=== PATIENT | male | born 1990 | race Caucasian/White ===

== ENCOUNTER 2016-12-03 16:13 | Emergency (ER) | payer OTHER ==
[~2016-12-03] VITALS: Ht 172.7 cm; Wt 72.0 kg
[2016-12-03 16:16] VITALS: Ht 172.7 cm; Wt 72.0 kg
--- NOTE | 2016-12-03 16:42 | EMERGENCY ROOM VISIT NOTE ---
History First contact with patient: 16:26 Chief Complaint: GI ASSESSMENT Stated Complaint: POOPING BLOOD Nursing Triage Summary: pt to the ED with 2 episodes of blood in his stool today no complaints of pain pt states it was red and was a lot History of Present Illness The patient is a 26 year old male who presents to the Emergency Room via private vehicle accompanied by stepfather with complaints of "pooping blood". The patient states that he woke up today and at the end of one bowel movement he noticed a little bit of blood, but then he had another bowel movement and it was bright red blood per rectum. He states that the pole was reddened. He notes this happened one other time about 1-2 years ago that was near identical to today. He felt some immediately the past, but does not believe that today. He denies any pain, fevers, chills, medical problems, history of hemorrhoids, fissures. He denies any insertion of objects in the rectum. Review of Systems A complete 6-point Review of Systems was discussed with the patient, with pertinent positives and negatives listed in the History of Present Illness. All remaining Review of Systems questions can be considered negative unless otherwise specified. Past Medical/Surgical History No pertinent. Family History No pertinent. Social History Smoking Status: Never Smoker Pt. currently lives locally. Current/Historical Medications No Active Prescriptions or Reported Meds Physical Exam Vital Signs Date Time Temp Pulse Resp B/P (MAP) Pulse Ox O2 Delivery O2 Flow Rate FiO2 12/03/16 18:51 65 16 99 Room Air 12/03/16 18:45 36.7 65 16 137/85 99 12/03/16 16:16 36.7 65 16 144/93 99 Room Air Physical Exam VITAL SIGNS - Vital signs and nursing notes were reviewed. Stable. GENERAL -26-year-old female appearing his stated age who is in no acute distress. Communicates well with provider and answers questions appropriately. SKIN - Without rashes. No petechial rashes. HEAD - NC/AT. LUNGS - Chest wall symmetric without accessory muscle use, intercostals retractions, or central cyanosis. Normal vesicular breath sounds CTA B/L. No wheezes, rales, or rhonchi appreciated. CARDIAC - RRR with S1/S2. No murmur, rubs, or gallops appreciated. ABDOMEN - Abdominal contour normal without pulsations or visible masses. BS normoactive all four quadrants. No tenderness, palpable masses, hepatosplenomegaly, or ascites noted. RECTAL: There is a small hemorrhoid in the anterior most portion that is not thrombosed. No active hemorrhaging or bleeding. Consent was obtained, and a rectal exam was performed. Hemoccult test was positive. There was no evidence of visible fissure, or mass. Medical Decision & Procedures Laboratory Results 12/03/16 17:30 Red Blood Count 4.80, Mean Corpuscular Volume 88.1, Mean Corpuscular Hemoglobin 31.9, Mean Corpuscular Hemoglobin Concent 36.2, Mean Platelet Volume 8.9, Neutrophils (%) (Auto) 59.8, Lymphocytes (%) (Auto) 23.8, Monocytes (%) (Auto) 7.2, Eosinophils (%) (Auto) 8.6, Basophils (%) (Auto) 0.3, Neutrophils # (Auto) 3.46, Lymphocytes # (Auto) 1.38, Monocytes # (Auto) 0.42, Eosinophils # (Auto) 0.50, Basophils # (Auto) 0.02 12/03/16 17:30 Test 12/03/16 17:30 White Blood Count 5.80 K/uL (4.8-10.8) Red Blood Count 4.80 M/uL (4.7-6.1) Hemoglobin 15.3 g/dL (14.0-18.0) Hematocrit 42.3 % (42-52) Mean Corpuscular Volume 88.1 fL (80-100) Mean Corpuscular Hemoglobin 31.9 pg (25-34) Mean Corpuscular Hemoglobin Concent 36.2 g/dl (32-36) Platelet Count 193 K/uL (130-400) Mean Platelet Volume 8.9 fL (7.4-10.4) Neutrophils (%) (Auto) 59.8 % Lymphocytes (%) (Auto) 23.8 % Monocytes (%) (Auto) 7.2 % Eosinophils (%) (Auto) 8.6 % Basophils (%) (Auto) 0.3 % Neutrophils # (Auto) 3.46 K/uL (1.4-6.5) Lymphocytes # (Auto) 1.38 K/uL (1.2-3.4) Monocytes # (Auto) 0.42 K/uL (0.11-0.59) Eosinophils # (Auto) 0.50 K/uL (0-0.5) Basophils # (Auto) 0.02 K/uL (0-0.2) RDW Standard Deviation 40.0 fL (36.4-46.3) RDW Coefficient of Variation 12.5 % (11.5-14.5) Immature Granulocyte % (Auto) 0.3 % Immature Granulocyte # (Auto) 0.02 K/uL (0.00-0.02) Prothrombin Time 10.9 SECONDS (9.0-12.0) Prothromb Time International Ratio 1.0 (0.9-1.1) Activated Partial Thromboplast Time 25.7 SECONDS (21.0-31.0) Partial Thromboplastin Ratio 1.0 Anion Gap 8.0 mmol/L (3-11) Est Creatinine Clear Calc Drug Dose 110.3 ml/min Estimated GFR () 122.2 Estimated GFR (Non- 105.4 BUN/Creatinine Ratio 12.5 (10-20) Calcium Level 9.0 mg/dl (8.5-10.1) Total Bilirubin 1.8 mg/dl (0.2-1) Aspartate Amino Transf (AST/SGOT) 14 U/L (15-37) Alanine Aminotransferase (ALT/SGPT) 17 U/L (12-78) Alkaline Phosphatase 57 U/L (45-117) Total Protein 7.6 gm/dl (6.4-8.2) Albumin 4.3 gm/dl (3.4-5.0) Globulin 3.3 gm/dl (2.5-4.0) Albumin/Globulin Ratio 1.3 (0.9-2) Medical Decision Patient was seen and evaluated as above. He presents to us today with painless rectal bleeding 2. His examination is benign except for a small anterior hemorrhoid. Hemoccult is positive. At this time I do not believe that the benefit of imaging outweighs the radiation risk. Blood work was obtained, and reveals no concerning leukocytosis, or anemia. Metabolic panel reveals no evidence of kidney or liver failure. I suspect he either has a small little fissure, or the hemorrhoid is causing the bleeding. He is to follow with his family doctor by calling him later today or first thing tomorrow, and is to return with worsening. They were educated upon management, educated upon worrisome symptoms in which to return, had questions answered prior to discharge , and was discharged home in good condition. In the evaluation and treatment of this patient the following differential diagnoses were entertained: Crohn's disease, ulcerative colitis, infectious etiology, anal fissure, hemorrhoids, among others. Impression Primary Impression: Rectal bleed Departure Information Dispostion Home / Self-Care Condition GOOD Prescriptions No Active Prescriptions or Reported Meds Referrals No Doctor, Assigned (PCP) Patient Instructions My [facility] Additional Instructions You have been treated in the Emergency Department your rectal bleeding. Laboratory results have ruled out any emergent causes for your bleeding pain which would warrant admission or surgery. Please call your family doctor tomorrow to schedule follow-up regarding your painless rectal bleeding, as well as your lab work that we discussed today. I have printed your labs. Drink plenty of water and stay well hydrated. As with any trip to the Emergency Department, you should follow-up with your Primary Care Provider from today's visit. Return to the emergency department if your symptoms persist despite treatment plan outlined above or if the following symptoms occur: increased fevers, chills , worsening nausea/vomiting, more blood in your stool or urine. Please return with any new/concerning symptoms.
[2016-12-03 17:40] LABS: BASO % 0.3 %; BASO ABS # 0.02 K/uL (0-0.2); COMPLETE YES; EOS % 8.6 %; HEMATOCRIT 42.3 % (42-52); IG% 0.3 %; LYMPH % 23.8 %; LYMPH ABS # 1.38 K/uL (1.2-3.4); MEAN CELL VOLUME 88.1 fL (80-100); MEAN CORPUSCULAR HEMOGLOBIN 31.9 pg (25-34); MEAN CORPUSCULAR HGB CONC 36.2 g/dl (32-36); MEAN PLATELET VOLUME 8.9 fL (7.4-10.4); MONO % 7.2 %; NEUT % 59.8 %; PLATELET COUNT 193 K/uL (130-400)
[2016-12-03 17:49] LABS: PROTHROMBIN TIME (PATIENT) 10.9 SECONDS (9.0-12.0)
[2016-12-03 18:03] LABS: BUN/CREATININE RATIO 12.5 (10-20); CREATININE 0.99 mg/dl (0.60-1.40); POTASSIUM 3.7 mmol/L (3.5-5.1)
[2016-12-03 18:06] LABS: ALB/GLOB RATIO 1.3 (0.9-2)
[2016-12-03 18:45] VITALS: BP 137/85; TEMP 36.7
[2016-12-03 18:51] VITALS: PULSE 65; O2SAT 99
== END 2016-12-03 18:45 | disposition home or self-care (01) ==
LOC: C.EDC 16:16
DX: K62.5 Hemorrhage of anus and rectum (principal)